=== PATIENT | female | born 1960 | race Caucasian/White ===

== ENCOUNTER 2018-09-02 22:21 | Emergency (ER) | payer MEDICAID, OTHER ==
[2018-09-02 22:27] VITALS: BP 129/78
--- NOTE | 2018-09-02 22:34 | EDPHY ---
H & P Stated Complaint: uti symptoms x 2 hours Time Seen by Provider: 09/02/18 22:34 HPI/ROS: HPI CHIEF COMPLAINT: "I think I have a urinary tract infection" HISTORY OF PRESENT ILLNESS: Patient is a 57-year-old female, presents emergency room urinary frequency, dysuria, hematuria and suprapubic discomfort. States started 2 hr ago. No fever. Denies vomiting. Denies nausea denies back pain. Main complaint dysuria and urinary frequency. Past Medical History: Thyroid disease Past Surgical History: No recent surgery Social History: Denies drugs alcohol tobacco. Family History: Noncontributory ROS REVIEW OF SYSTEMS: 10 Systems were reviewed and negative with the exception of the elements mentioned in the history of present illness. Exam Constitutional triage nursing summary reviewed, vital signs reviewed, awake/ alert. Eyes normal conjunctivae and sclera, EOMI, PERRLA. HENT normal inspection, atraumatic, moist mucus membranes, no epistaxis, neck supple/ no meningismus, no raccoon eyes. Respiratory clear to auscultation bilaterally, normal breath sounds, no respiratory distress, no wheezing. Cardiovascular rate normal, regular rhythm, no murmur, no edema, distal pulses normal. Gastrointestinal mild tender palpation suprapubic, no rebound, no guarding, normal bowel sounds, no distension, no pulsatile mass. Genitourinary no CVA tenderness. Musculoskeletal no midline vertebral tenderness, full range of motion, no calf swelling, no tenderness of extremities, no meningismus, good pulses, neurovascularly intact. Skin pink, warm, & dry, no rash, skin atraumatic. Neurologic awake, alert and oriented x 3, AAOx3, moves all 4 extremities equally, motor intact, sensory intact, CN II-XII intact, normal cerebellar, normal vision, normal speech. Psychiatric normal mood/affect. Heme/Lymph/Immune no lymphadenopathy. Differential Diagnosis: Includes but is not limited to in a particular order urinary tract infection, cystitis, pyelonephritis Medical Decision Making: Plan for this patient p.o. Pyridium, p.o. Keflex. Urine culture. Re-evaluation: 2303 patient resting comfortably no acute distress. Vital signs stable without fever. No back pain, no signs of pyelonephritis on exam. She appears well nontoxic. 1st dose of antibiotics given emergency room, urine culture sent. Keflex and peridium for home. She understands drink lots of fluids stay well- hydrated. We also discussed return precautions return emergency room if worsening abdominal pain, fever, vomiting, not doing well. Source: Patient - Personal History Current Tetanus Diphtheria and Acellular Pertussis (TDAP): Yes - Medical/Surgical History Hx Asthma: No Hx Chronic Respiratory Disease: No Hx Diabetes: No Hx Cardiac Disease: No Hx Renal Disease: No Hx Cirrhosis: No Hx Alcoholism: No Hx HIV/AIDS: No Hx Splenectomy or Spleen Trauma: No Other PMH: HYPOTHYROID, cervical spine fusion w/ plates - Social History Smoking Status: Never smoked Constitutional: Initial Vital Signs Temperature (C) 36.8 C 09/02/18 22:24 Heart Rate 59 L 09/02/18 22:24 Respiratory Rate 16 09/02/18 22:24 Blood Pressure 129/78 H 09/02/18 22:24 O2 Sat (%) 98 09/02/18 22:24 O2 Delivery Mode Room Air Allergies/Adverse Reactions: No Known Allergies Allergy (Verified 03/01/14 06:09) Home Medications: Medication Instructions Recorded Levothyroxine [Synthroid 50 mcg 50 mcg PO DAILY06 03/01/14 (*)] Cephalexin [Keflex] 500 mg PO Q6H #28 cap 09/02/18 Phenazopyridine HCl [Pyridium] 200 mg PO TID #15 tab 09/02/18 Medical Decision Making - Data Points Laboratory Results: 09/02/18 21:25 Urine Color RED Urine Appearance MODERATELY TURBID Urine pH 8.0 H (5.0-7.5) Ur Specific [place] 1.019 (1.002-1.030) Urine Protein 2+ H (NEGATIVE) Urine Ketones NEGATIVE (NEGATIVE) Urine Blood 3+ H (NEGATIVE) Urine Nitrate POSITIVE H (NEGATIVE) Urine Bilirubin NEGATIVE (NEGATIVE) Urine Urobilinogen NEGATIVE EU EU (0.2-1.0) Ur Leukocyte Esterase 1+ H (NEGATIVE) Urine RBC 50-182 /hpf H /hpf (0-3) Urine WBC 50-182 /hpf H /hpf (0-3) Ur Epithelial Cells TRACE /lpf /lpf (NONE-1+) Urine Bacteria 1+ /hpf H /hpf (NONE SEEN) Urine Glucose NEGATIVE (NEGATIVE) Departure - Departure Disposition: Home, Routine, Self-Care Clinical Impression: Urinary tract infection Condition: Good Instructions: Urinary Tract Infection in Women (ED) Additional Instructions: 1. Drink lots of fluids stay well-hydrated 2. Antibiotics as prescribed 3. Return to the emergency room if worsening symptoms includes worsening urinary symptoms, abdominal pain, vomiting, fever. Referrals: NONE *PRIMARY CARE P,. [Primary Care Provider] - As per Instructions [facility],. [Clinic] - As per Instructions Prescriptions: Cephalexin [Keflex] 500 mg PO Q6H #28 cap Phenazopyridine HCl [Pyridium] 200 mg PO TID #15 tab
[2018-09-02] MEDS ORDERED: PHENAZOPYRIDINE HCL 200 MG TAB PO ONE (22:52)
[2018-09-02] MEDS ORDERED: CEPHALEXIN 500MG PREPACK#4 BTL TAKEHOME ONE (22:52)
[2018-09-02] MEDS ORDERED: CEPHALEXIN 500 MG CAP PO ONE (22:52)
== END 2018-09-02 23:14 | disposition home or self-care (01) ==
DX: N39.0 Urinary tract infection, site not specified (principal)